=== PATIENT | male | born 1955 | race Caucasian/White ===

== ENCOUNTER 2016-12-05 18:10 | Inpatient (IN) | payer MEDICAID ==
[~2016-12-05] VITALS: Ht 177.8 cm; Wt 81.8 kg
[~2016-12-05 18:10] MED LIST: NOCURR
[2016-12-05] MEDS ORDERED: ANTIBIOTIC PO (18:29)
[2016-12-05] MEDS ORDERED: INSNOV SQ (18:30)
[2016-12-05 18:36] LABS: GLUCOSE,POINT OF CARE 159 MG/DL (70-110)
[2016-12-05 19:02] LABS: BASOPHILS % (AUTO) 0.5 % (0.0-2.0); EOSINOPHILS % (AUTO) 0.1 % (1.0-6.0); HEMATOCRIT 46.5 % (41-53); LYMPHOCYTES # (AUTO) 2.4 K/uL (1.0-4.8); LYMPHOCYTES % (AUTO) 21.9 % (22.0-44.0); MEAN CORPUSCULAR HEMOGLOBIN 32.7 pg (26.0-34.0); MEAN CORPUSCULAR HGB CONC 34.4 G/dL (31.0-37.0); MEAN CORPUSCULAR VOLUME 95 fL (80-100); MONOCYTES # (AUTO) 0.9 K/uL (0.1-1.0); MONOCYTES % (AUTO) 7.8 % (2.0-9.0); NEUTROPHILS # (AUTO) 7.6 K/uL (1.8-7.7); NEUTROPHILS % (AUTO) 69.7 % (40.0-70.0); PLATELET COUNT (AUTO) 272 K/uL (150-450); RED BLOOD CELL COUNT(AUTO) 4.89 MIL/uL (4.50-5.90); RED CELL DISTRIBUTION WIDTH 12.3 % (11.5-14.5); WHITE BLOOD COUNT (AUTO) 10.9 K/uL (4.5-11.0)
[2016-12-05 19:38] LABS: ANION GAP 10 mmol/L (8-16); CALCIUM, TOTAL 8.6 mg/dL (8.8-10.5); CARBON DIOXIDE 23 mmol/L (22-29); CHLORIDE 101 mmol/L (98-107); CREATININE 0.63 mg/dL (0.60-1.30); GLOMERULAR FILTR. RATE CALC > 60 mL/min (>60); POTASSIUM 3.8 mmol/L (3.5-5.1); SODIUM SERUM 134 mmol/L (136-145); UREA NITROGEN, BLOOD 10 mg/dL (7-18)
[2016-12-05 19:46] LABS: ALANINE AMINOTRANSFERASE 21 U/L (12-78); ALBUMIN 3.4 g/dL (3.4-5.0); ASPARTATE AMINOTRANSFERASE 11 U/L (15-37); BILIRUBIN,TOTAL 0.5 mg/dL (0.1-1.0); LACTIC ACID 1.6 mmol/L (0.4-2.0)
[2016-12-05] MEDS ORDERED: ONDANSETRON HCL 4 MG/2 ML VIAL IVP PRN (20:00)
[2016-12-05] MEDS ORDERED: ACETAMINOPHEN 325 MG TABLET PO PRN (20:00)
[2016-12-05] MEDS ORDERED: PIPERACILLIN/TAZO 3.375 GM/D5W 50 ML IV ONE (20:00)
[2016-12-05] MEDS ORDERED: KETOROLAC TROMETHAMINE 30 MG/ML VIAL IVP ONE (20:00)
[2016-12-05] MEDS ORDERED: SODIUM CHLORIDE 0.9% 1,000 ML IV ONE (20:00)
[2016-12-05] MEDS ORDERED: CEFTAROLINE 600 MG/D5W 250 ML IV ONE (20:00)
[2016-12-06] MEDS ORDERED: 0.9% SODIUM CHLORIDE 10 ML SYRINGE IVP PRN (03:30)
[2016-12-06] MEDS ORDERED: ONDANSETRON HCL 4 MG/2 ML VIAL IVP PRN (03:30)
[2016-12-06] MEDS ORDERED: *CLINICAL-CEFTAROLINE DOSING CLINICAL ONE (03:30)
[2016-12-06] MEDS ORDERED: DEXTROSE 50%-WATER 25 GM/50 ML SYRINGE IVP PRN (03:30)
[2016-12-06 06:46] LABS: GLUCOSE,POINT OF CARE 192 MG/DL (70-110)
[2016-12-06 07:41] LABS: GLUCOSE,POINT OF CARE 171 MG/DL (70-110)
[2016-12-06] MEDS: DOCUSATE SODIUM 100 MG CAPSULE PO SCH ×2 (08:51→20:52)
[2016-12-06] MEDS: PANTOPRAZOLE SODIUM 40 MG/VIAL IVP SCH (08:58)
[2016-12-06] MEDS: OxyCODONE HCL/ACETAMINOPHEN 5-325 MG TABLET PO PRN (08:59)
[2016-12-06 09:29] VITALS: BP 115/78
[2016-12-06] MEDS: INSULIN ASPART 100 UNITS/ML SQ PRN ×3 (11:31→21:33)
[2016-12-06 11:51] LABS: GLUCOSE,POINT OF CARE 230 MG/DL (70-110)
[2016-12-06 12:01] VITALS: BP 146/84
[2016-12-06] MEDS ORDERED: INFLUENZA VIRUS VACCINE QVS 2016-17 (3YR+)/PF 60 MCG/0.5 ML SYRINGE IM ONE (12:30)
[2016-12-06] MEDS ORDERED: PNEUMOCOCCAL VACCINE POLYVALENT 0.5 ML VIAL [PPSV23] IM ONE (12:30)
[2016-12-06 15:42] VITALS: BP 128/78
[2016-12-06 17:57] LABS: GLUCOSE COMMENT 1 Received Meds; GLUCOSE,POINT OF CARE 177 MG/DL (70-110)
[2016-12-06 19:32] VITALS: BP 140/75
[2016-12-06] MEDS ORDERED: SODIUM CHLORIDE 0.9% 250 ML IV ONE (20:34)
[2016-12-06] MEDS: CEFTAROLINE 600 MG/D5W 250 ML IV SCH (20:52)
[2016-12-06 21:50] LABS: GLUCOSE,POINT OF CARE 165 MG/DL (70-110)
[2016-12-06 23:13] VITALS: BP 114/75
[2016-12-07 04:21] VITALS: BP 124/79
[2016-12-07 05:32] LABS: GLUCOSE COMMENT 1 Received Meds; GLUCOSE,POINT OF CARE 192 MG/DL (70-110)
[2016-12-07] MEDS: INSULIN ASPART 100 UNITS/ML SQ PRN ×4 (05:47→20:26)
[2016-12-07] MEDS: OxyCODONE HCL/ACETAMINOPHEN 5-325 MG TABLET PO PRN (05:48)
[2016-12-07 06:10] LABS: BASOPHILS % (AUTO) 0.5 % (0.0-2.0); EOSINOPHILS % (AUTO) 2.3 % (1.0-6.0); HEMATOCRIT 43.6 % (41-53); MEAN CORPUSCULAR HEMOGLOBIN 32.8 pg (26.0-34.0); MEAN CORPUSCULAR HGB CONC 34.4 G/dL (31.0-37.0); MEAN CORPUSCULAR VOLUME 95 fL (80-100); MONOCYTES # (AUTO) 0.7 K/uL (0.1-1.0); MONOCYTES % (AUTO) 9.7 % (2.0-9.0); NEUTROPHILS # (AUTO) 4.7 K/uL (1.8-7.7); NEUTROPHILS % (AUTO) 61.5 % (40.0-70.0); PLATELET COUNT (AUTO) 236 K/uL (150-450); RED BLOOD CELL COUNT(AUTO) 4.58 MIL/uL (4.50-5.90); RED CELL DISTRIBUTION WIDTH 12.3 % (11.5-14.5); WHITE BLOOD COUNT (AUTO) 7.6 K/uL (4.5-11.0)
[2016-12-07 06:41] LABS: ANION GAP 9 mmol/L (8-16); CALCIUM, TOTAL 8.7 mg/dL (8.8-10.5); CARBON DIOXIDE 25 mmol/L (22-29); CHLORIDE 102 mmol/L (98-107); CREATININE 0.65 mg/dL (0.60-1.30); GLOMERULAR FILTR. RATE CALC > 60 mL/min (>60); POTASSIUM 4.2 mmol/L (3.5-5.1); SODIUM SERUM 136 mmol/L (136-145); UREA NITROGEN, BLOOD 8 mg/dL (7-18)
[2016-12-07 07:46] VITALS: BP 115/64
[2016-12-07] MEDS: PANTOPRAZOLE SODIUM 40 MG/VIAL IVP SCH (08:22)
[2016-12-07] MEDS: DOCUSATE SODIUM 100 MG CAPSULE PO SCH ×2 (08:22→20:29)
[2016-12-07] MEDS: CEFTAROLINE 600 MG/D5W 250 ML IV SCH ×2 (08:22→20:25)
[2016-12-07 11:32] LABS: GLUCOSE,POINT OF CARE 189 MG/DL (70-110)
[2016-12-07 11:42] VITALS: BP 134/66
[2016-12-07 15:34] VITALS: BP 129/70
[2016-12-07 16:56] LABS: GLUCOSE COMMENT 1 Received Meds; GLUCOSE,POINT OF CARE 218 MG/DL (70-110)
[2016-12-07 20:12] VITALS: BP 134/75
[2016-12-07 21:31] LABS: GLUCOSE COMMENT 1 Received Meds; GLUCOSE,POINT OF CARE 177 MG/DL (70-110)
[2016-12-07 23:15] VITALS: BP 130/78
[2016-12-08 03:45] VITALS: BP 124/67
[2016-12-08] MEDS: INSULIN ASPART 100 UNITS/ML SQ PRN ×4 (05:52→20:53)
[2016-12-08 06:21] LABS: GLUCOSE COMMENT 1 Received Meds; GLUCOSE,POINT OF CARE 159 MG/DL (70-110)
[2016-12-08 06:44] LABS: EOSINOPHILS % (AUTO) 2.5 % (1.0-6.0); HEMATOCRIT 44.8 % (41-53); HEMOGLOBIN 15.4 g/dL (13.5-17.5); LYMPHOCYTES # (AUTO) 1.8 K/uL (1.0-4.8); LYMPHOCYTES % (AUTO) 24.3 % (22.0-44.0); MEAN CORPUSCULAR HEMOGLOBIN 32.9 pg (26.0-34.0); MEAN CORPUSCULAR HGB CONC 34.5 G/dL (31.0-37.0); MEAN CORPUSCULAR VOLUME 95 fL (80-100); MONOCYTES # (AUTO) 0.8 K/uL (0.1-1.0); MONOCYTES % (AUTO) 10.9 % (2.0-9.0); NEUTROPHILS # (AUTO) 4.6 K/uL (1.8-7.7); NEUTROPHILS % (AUTO) 61.3 % (40.0-70.0); PLATELET COUNT (AUTO) 240 K/uL (150-450); RED CELL DISTRIBUTION WIDTH 12.3 % (11.5-14.5); WHITE BLOOD COUNT (AUTO) 7.6 K/uL (4.5-11.0)
[2016-12-08 07:13] LABS: ALANINE AMINOTRANSFERASE 17 U/L (12-78); ALBUMIN 3.1 g/dL (3.4-5.0); ANION GAP 5 mmol/L (8-16); ASPARTATE AMINOTRANSFERASE 11 U/L (15-37); BILIRUBIN,TOTAL 0.8 mg/dL (0.1-1.0); CALCIUM, TOTAL 8.6 mg/dL (8.8-10.5); CARBON DIOXIDE 26 mmol/L (22-29); CHLORIDE 101 mmol/L (98-107); GLOMERULAR FILTR. RATE CALC > 60 mL/min (>60); POTASSIUM 3.6 mmol/L (3.5-5.1); SODIUM SERUM 132 mmol/L (136-145); TOTAL PROTEIN, SERUM 6.5 g/dL (6.4-8.2); UREA NITROGEN, BLOOD 11 mg/dL (7-18)
[2016-12-08 08:00] VITALS: BP 115/69
[2016-12-08] MEDS: DOCUSATE SODIUM 100 MG CAPSULE PO SCH ×2 (08:30→20:52)
[2016-12-08] MEDS: OxyCODONE HCL/ACETAMINOPHEN 5-325 MG TABLET PO PRN ×2 (08:30→20:52)
[2016-12-08] MEDS: PANTOPRAZOLE SODIUM 40 MG/VIAL IVP SCH (08:30)
[2016-12-08] MEDS: CEFTAROLINE 600 MG/D5W 250 ML IV SCH ×2 (08:30→20:52)
[2016-12-08 12:26] VITALS: BP 114/62
[2016-12-08 12:31] LABS: GLUCOSE COMMENT 1 Received Meds; GLUCOSE,POINT OF CARE 246 MG/DL (70-110)
[2016-12-08 15:48] VITALS: BP 116/64
[2016-12-08 19:47] VITALS: BP 139/78
[2016-12-08 22:26] LABS: GLUCOSE,POINT OF CARE 174 MG/DL (70-110)
[2016-12-08 23:13] VITALS: BP 120/70
[2016-12-09] VITALS (8 sets, daily range): BP systolic 11–158; BP diastolic 62–91
[2016-12-09 04:12] LABS: GLUCOSE COMMENT 1 Received Meds; GLUCOSE,POINT OF CARE 151 MG/DL (70-110)
[2016-12-09 06:21] LABS: GLUCOSE,POINT OF CARE 181 MG/DL (70-110)
[2016-12-09] MEDS ORDERED: LIDOCAINE HCL/PF 1% 30 ML VIAL ONE (08:58)
[2016-12-09] MEDS ORDERED: IOHEXOL 300 MG/ML 150 ML VIAL ONE (08:59)
[2016-12-09] MEDS ORDERED: SODIUM BICARBONATE 50 MEQ/50 ML VIAL ONE (08:59)
[2016-12-09] MEDS: DOCUSATE SODIUM 100 MG CAPSULE PO SCH ×2 (09:00→20:39)
[2016-12-09] MEDS: CEFTAROLINE 600 MG/D5W 250 ML IV SCH ×2 (09:00→20:40)
[2016-12-09] MEDS: PANTOPRAZOLE SODIUM 40 MG/VIAL IVP SCH (09:00)
[2016-12-09] MEDS ORDERED: HEPARIN SODIUM 1000 UNITS/NS 500 ML ONE (09:18)
[2016-12-09] MEDS ORDERED: IOHEXOL 300 MG/ML 100 ML VIAL ONE (09:28)
[2016-12-09] MEDS ORDERED: MIDAZOLAM HCL 2 MG/2 ML VIAL ONE ×2 (09:29→11:50)
[2016-12-09] MEDS ORDERED: FentaNYL CITRATE-PF 100 MCG/2 ML VIAL ONE ×2 (09:29→11:50)
[2016-12-09] MEDS ORDERED: IOHEXOL 300 MG/ML 100 ML VIAL IARTER ONE (09:45)
[2016-12-09] MEDS ORDERED: SODIUM CHLORIDE 0.9% 500 ML IV ONE (09:45)
[2016-12-09] MEDS ORDERED: FentaNYL CITRATE-PF 100 MCG/2 ML VIAL IVP ONE ×3 (09:45→11:45)
[2016-12-09] MEDS ORDERED: LIDOCAINE 1% 30 ML/SOD BICARB 8.4% 4 ML SQ ONE (09:45)
[2016-12-09] MEDS ORDERED: MIDAZOLAM HCL 2 MG/2 ML VIAL IVP ONE ×3 (09:45→11:45)
[2016-12-09] MEDS ORDERED: IOHEXOL 300 MG/ML 50 ML VIAL ONE ×2 (10:04→11:20)
[2016-12-09] MEDS ORDERED: HEPARIN SODIUM,PORCINE 5,000 UNITS/ML VIAL IVP ONE ×2 (10:45→11:45)
[2016-12-09] MEDS ORDERED: IOHEXOL 300 MG/ML 50 ML VIAL IARTER ONE (11:45)
[2016-12-09 17:11] LABS: GLUCOSE COMMENT 1 Received Meds; GLUCOSE,POINT OF CARE 235 MG/DL (70-110)
[2016-12-09] MEDS: OxyCODONE HCL/ACETAMINOPHEN 5-325 MG TABLET PO PRN ×3 (17:16→23:57)
[2016-12-09] MEDS: INSULIN ASPART 100 UNITS/ML SQ PRN ×2 (17:17→20:40)
[2016-12-09 21:06] LABS: GLUCOSE,POINT OF CARE 131 MG/DL (70-110)
[2016-12-10 04:32] VITALS: BP 102/62
[2016-12-10] MEDS: INSULIN ASPART 100 UNITS/ML SQ PRN ×3 (06:05→17:29)
[2016-12-10] MEDS: OxyCODONE HCL/ACETAMINOPHEN 5-325 MG TABLET PO PRN ×4 (06:07→21:52)
[2016-12-10 06:31] LABS: GLUCOSE COMMENT 1 Received Meds; GLUCOSE,POINT OF CARE 139 MG/DL (70-110)
[2016-12-10 07:35] VITALS: BP 110/65
[2016-12-10] MEDS: DOCUSATE SODIUM 100 MG CAPSULE PO SCH ×2 (08:45→21:00)
[2016-12-10] MEDS: PANTOPRAZOLE SODIUM 40 MG/VIAL IVP SCH (08:46)
[2016-12-10] MEDS: CEFTAROLINE 600 MG/D5W 250 ML IV SCH ×2 (08:46→21:00)
[2016-12-10 11:49] VITALS: BP 121/72
[2016-12-10 12:40] LABS: GLUCOSE COMMENT 1 Received Meds; GLUCOSE,POINT OF CARE 206 MG/DL (70-110)
[2016-12-10 15:24] VITALS: BP 138/76
[2016-12-10 17:56] LABS: GLUCOSE COMMENT 1 Received Meds; GLUCOSE,POINT OF CARE 167 MG/DL (70-110)
[2016-12-10 19:31] VITALS: BP 112/64
[2016-12-10] MEDS ORDERED: SODIUM CHLORIDE 0.9% 250 ML IV ONE (22:18)
[2016-12-10 23:18] VITALS: BP 131/63
[2016-12-10 23:41] LABS: GLUCOSE COMMENT 1 Received Meds; GLUCOSE,POINT OF CARE 159 MG/DL (70-110)
[2016-12-11] VITALS (7 sets, daily range): BP systolic 111–157; BP diastolic 61–86
[2016-12-11 05:51] LABS: GLUCOSE COMMENT 1 Received Meds; GLUCOSE,POINT OF CARE 138 MG/DL (70-110)
[2016-12-11 06:41] LABS: BASOPHILS % (AUTO) 1.1 % (0.0-2.0); EOSINOPHILS % (AUTO) 3.6 % (1.0-6.0); HEMATOCRIT 46.4 % (41-53); HEMOGLOBIN 15.6 g/dL (13.5-17.5); LYMPHOCYTES # (AUTO) 2.2 K/uL (1.0-4.8); LYMPHOCYTES % (AUTO) 26.6 % (22.0-44.0); MEAN CORPUSCULAR HEMOGLOBIN 32.4 pg (26.0-34.0); MEAN CORPUSCULAR HGB CONC 33.6 G/dL (31.0-37.0); MEAN CORPUSCULAR VOLUME 97 fL (80-100); MONOCYTES % (AUTO) 11.7 % (2.0-9.0); NEUTROPHILS # (AUTO) 4.7 K/uL (1.8-7.7); PLATELET COUNT (AUTO) 236 K/uL (150-450); RED CELL DISTRIBUTION WIDTH 12.5 % (11.5-14.5); WHITE BLOOD COUNT (AUTO) 8.3 K/uL (4.5-11.0)
[2016-12-11] MEDS ORDERED: LIDOCAINE HCL/PF 1% 30 ML VIAL ONE (06:42)
[2016-12-11] MEDS ORDERED: BUPIVACAINE HCL/PF 0.5% 30 ML VIAL ONE (06:43)
[2016-12-11] MEDS ORDERED: SODIUM CHLORIDE 0.9% 1,000 ML IV ONE (06:43)
[2016-12-11 06:57] LABS: ANION GAP 6 mmol/L (8-16); CARBON DIOXIDE 30 mmol/L (22-29); CHLORIDE 100 mmol/L (98-107); CREATININE 0.77 mg/dL (0.60-1.30); GLOMERULAR FILTR. RATE CALC > 60 mL/min (>60); POTASSIUM 4.4 mmol/L (3.5-5.1); SODIUM SERUM 136 mmol/L (136-145); UREA NITROGEN, BLOOD 13 mg/dL (7-18)
[2016-12-11] MEDS ORDERED: SODIUM CHLORIDE 0.9% IRRIG BAG 1,000 ML IRRIG ONE (06:59)
[2016-12-11] MEDS ORDERED: SODIUM CL IRRIG SOLN BAG 0 ML IRRIG ONE (06:59)
[2016-12-11] MEDS ORDERED: SODIUM CHLORIDE 0.9% 10 ML ONE (07:35)
[2016-12-11] MEDS ORDERED: BACITRACIN 50,000 UNITS/VIAL ONE (07:35)
[2016-12-11] MEDS ORDERED: HYDROmorphone 2 MG/ML SYRINGE IVP PRN (08:00)
[2016-12-11] MEDS ORDERED: OXYGEN THERAPY IH SCH (08:00)
[2016-12-11] MEDS ORDERED: MEPERIDINE-PF 25 MG/ML SYRINGE IVP PRN (08:00)
[2016-12-11] MEDS ORDERED: FentaNYL CITRATE-PF 100 MCG/2 ML VIAL IVP PRN (08:00)
[2016-12-11] MEDS: PANTOPRAZOLE SODIUM 40 MG/VIAL IVP SCH (09:18)
[2016-12-11] MEDS: CEFTAROLINE 600 MG/D5W 250 ML IV SCH ×2 (09:18→21:07)
[2016-12-11] MEDS: DOCUSATE SODIUM 100 MG CAPSULE PO SCH ×2 (09:19→21:03)
[2016-12-11] MEDS: MULTIVITAMINS WITH MINERALS, THERAPEUTIC TABLET PO SCH (09:19)
[2016-12-11] MEDS: OxyCODONE HCL/ACETAMINOPHEN 5-325 MG TABLET PO PRN ×2 (11:01→18:50)
[2016-12-11] MEDS: INSULIN ASPART 100 UNITS/ML SQ PRN ×2 (11:31→17:15)
[2016-12-11 11:36] LABS: GLUCOSE,POINT OF CARE 239 MG/DL (70-110)
[2016-12-11] MEDS ORDERED: MIDAZOLAM HCL 2 MG/2 ML VIAL IVP ONE (12:00)
[2016-12-11] MEDS ORDERED: KETAMINE HCL 50 MG/ML 10 ML VIAL IVP ONE (12:00)
[2016-12-11] MEDS ORDERED: PROPOFOL 1% 20 ML VIAL IVP ONE (12:00)
[2016-12-11] MEDS ORDERED: FentaNYL CITRATE-PF 100 MCG/2 ML VIAL IVP ONE (12:00)
[2016-12-11 17:31] LABS: GLUCOSE COMMENT 1 Received Meds; GLUCOSE,POINT OF CARE 250 MG/DL (70-110)
[2016-12-11 23:20] LABS: GLUCOSE,POINT OF CARE 122 MG/DL (70-110)
[2016-12-12 04:27] VITALS: BP 110/56
[2016-12-12] MEDS: INSULIN ASPART 100 UNITS/ML SQ PRN ×4 (06:24→20:27)
[2016-12-12 07:22] LABS: ANION GAP 6 mmol/L (8-16); CALCIUM, TOTAL 8.9 mg/dL (8.8-10.5); CARBON DIOXIDE 29 mmol/L (22-29); CHLORIDE 102 mmol/L (98-107); CREATININE 0.72 mg/dL (0.60-1.30); GLOMERULAR FILTR. RATE CALC > 60 mL/min (>60); POTASSIUM 4.6 mmol/L (3.5-5.1); SODIUM SERUM 137 mmol/L (136-145); UREA NITROGEN, BLOOD 13 mg/dL (7-18)
[2016-12-12 07:30] LABS: GLUCOSE,POINT OF CARE 156 MG/DL (70-110)
[2016-12-12 08:05] VITALS: BP 105/60
[2016-12-12] MEDS: DOCUSATE SODIUM 100 MG CAPSULE PO SCH ×2 (08:09→20:24)
[2016-12-12] MEDS: MULTIVITAMINS WITH MINERALS, THERAPEUTIC TABLET PO SCH (08:09)
[2016-12-12] MEDS: PANTOPRAZOLE SODIUM 40 MG/VIAL IVP SCH (08:10)
[2016-12-12] MEDS: CEFTAROLINE 600 MG/D5W 250 ML IV SCH ×2 (08:11→20:26)
[2016-12-12 11:23] VITALS: BP 122/65
[2016-12-12 11:41] LABS: GLUCOSE,POINT OF CARE 204 MG/DL (70-110)
[2016-12-12 15:25] VITALS: BP 130/77
[2016-12-12 17:11] LABS: GLUCOSE COMMENT 1 Received Meds; GLUCOSE,POINT OF CARE 177 MG/DL (70-110)
[2016-12-12] MEDS: OxyCODONE HCL/ACETAMINOPHEN 5-325 MG TABLET PO PRN (17:12)
[2016-12-12 19:10] VITALS: BP 112/70
[2016-12-12 22:46] LABS: GLUCOSE,POINT OF CARE 221 MG/DL (70-110)
[2016-12-12 23:48] VITALS: BP 102/58
[2016-12-13 04:25] VITALS: BP 109/62
[2016-12-13] MEDS: INSULIN ASPART 100 UNITS/ML SQ PRN ×2 (06:09→11:27)
[2016-12-13 06:48] LABS: ANION GAP 7 mmol/L (8-16); CALCIUM, TOTAL 8.6 mg/dL (8.8-10.5); CARBON DIOXIDE 26 mmol/L (22-29); CHLORIDE 101 mmol/L (98-107); CREATININE 0.64 mg/dL (0.60-1.30); GLOMERULAR FILTR. RATE CALC > 60 mL/min (>60); SODIUM SERUM 134 mmol/L (136-145); UREA NITROGEN, BLOOD 12 mg/dL (7-18)
[2016-12-13 06:51] LABS: GLUCOSE,POINT OF CARE 177 MG/DL (70-110)
[2016-12-13 07:17] VITALS: BP 118/70
[2016-12-13] MEDS: MULTIVITAMINS WITH MINERALS, THERAPEUTIC TABLET PO SCH (08:51)
[2016-12-13] MEDS: CEFTAROLINE 600 MG/D5W 250 ML IV SCH (08:51)
[2016-12-13] MEDS: DOCUSATE SODIUM 100 MG CAPSULE PO SCH (08:51)
[2016-12-13] MEDS: OxyCODONE HCL/ACETAMINOPHEN 5-325 MG TABLET PO PRN (08:51)
[2016-12-13] MEDS: PANTOPRAZOLE SODIUM 40 MG/VIAL IVP SCH (08:51)
[2016-12-13 11:33] VITALS: BP 136/76
[2016-12-13 11:46] LABS: GLUCOSE COMMENT 1 Received Meds; GLUCOSE,POINT OF CARE 212 MG/DL (70-110)
[2016-12-13] MEDS ORDERED: AMINO ACIDS/PROTEIN HYDROLYS 30 ML TUBE PO SCH (12:00)
[2016-12-13] MEDS ORDERED: INSLAN SQ (14:40)
== END 2016-12-13 17:20 | disposition home or self-care (01) | DRG 173 ==
LOC: EMS 18:11 → 6N 12-06 05:18
PROVIDERS: ADMIT Internal Medicine; ATTEND Internal Medicine
PROC: 3E0234Z Introduction of Serum, Toxoid and Vaccine into Muscle, Percutaneous Approach (ICD-10-PCS; principal; 2016-12-07)
PROC: 04703ZZ Dilation of Abdominal Aorta, Percutaneous Approach (ICD-10-PCS; 2016-12-09)
PROC: B41G1ZZ Fluoroscopy of Left Lower Extremity Arteries using Low Osmolar Contrast (ICD-10-PCS; 2016-12-09)
DX: E11.52 Type 2 diabetes mellitus with diabetic peripheral angiopathy with gangrene (principal); L03.116 Cellulitis of left lower limb; I10 Essential (primary) hypertension; E78.5 Hyperlipidemia, unspecified; B96.20 Unspecified Escherichia coli [E. coli] as the cause of diseases classified elsewhere; F17.210 Nicotine dependence, cigarettes, uncomplicated; Z79.4 Long term (current) use of insulin
CPT/HCPCS: 36200; 75630; 75716; 75962; 82962; 83605; 87070; 87205; 88305; 88311; 90471; 93925; 96365; 96368; 99285; C9113; J0712; J1644; J1885; J2250; J2543; J2704; J3010; J3490; J7030; J7050; Q9967

== ENCOUNTER 2016-12-13 20:47 | Emergency (ER) | payer MEDICAID ==
[~2016-12-13] VITALS: Ht 170.2 cm; Wt 85.0 kg
[~2016-12-13 20:47] MED LIST changes: +ANTIBIOTIC PO; +INSLAN SQ; +INSNOV SQ; -NOCURR
[2016-12-13 21:11] LABS: GLUCOSE,POINT OF CARE 232 MG/DL (70-110)
[2016-12-13] MEDS ORDERED: MORPHINE SULFATE 4 MG/ML SYRINGE IVP ONE (22:00)
[2016-12-13] MEDS ORDERED: ONDANSETRON HCL 4 MG/2 ML VIAL IVP ONE (22:00)
[2016-12-13 22:21] LABS: BASOPHILS # (AUTO) 0.05 K/uL (0.00-0.20); BASOPHILS % (AUTO) 0.4 % (0.0-2.0); EOSINOPHILS % (AUTO) 0.02 % (1.0-6.0); HEMATOCRIT 43.7 % (41-53); HEMOGLOBIN 14.9 g/dL (13.5-17.5); LYMPHOCYTES % (AUTO) 17.7 % (22.0-44.0); MEAN CORPUSCULAR HEMOGLOBIN 32.7 pg (26.0-34.0); MEAN CORPUSCULAR HGB CONC 34.1 G/dL (31.0-37.0); MEAN CORPUSCULAR VOLUME 96 fL (80-100); MONOCYTES # (AUTO) 0.8 K/uL (0.1-1.0); MONOCYTES % (AUTO) 6.9 % (2.0-9.0); NEUTROPHILS # (AUTO) 8.5 K/uL (1.8-7.7); PLATELET COUNT (AUTO) 229 K/uL (150-450); RED BLOOD CELL COUNT(AUTO) 4.55 MIL/uL (4.50-5.90); RED CELL DISTRIBUTION WIDTH 12.8 % (11.5-14.5); WHITE BLOOD COUNT (AUTO) 11.4 K/uL (4.5-11.0)
[2016-12-13 23:30] VITALS: BP 112/65
== END 2016-12-13 23:30 | disposition home or self-care (01) ==
LOC: EMS 20:49
DX: G89.18 Other acute postprocedural pain (principal); M79.672 Pain in left foot; E11.9 Type 2 diabetes mellitus without complications; Z79.4 Long term (current) use of insulin
CPT/HCPCS: 36415; 82962; 85025; 96374; 96375; 99284; J2270; J2405

== ENCOUNTER 2019-03-10 17:41 | Emergency (ER) | payer SELFPAY ==
[~2019-03-10] VITALS: Ht 170.2 cm; Wt 77.3 kg
[~2019-03-10 17:41] MED LIST changes: -ANTIBIOTIC PO
[2019-03-10 17:55] VITALS: BP 137/82
[2019-03-10 18:00] LABS: GLUCOSE,POINT OF CARE 147 MG/DL (70-110)
== END 2019-03-10 18:20 | disposition home or self-care (01) ==
LOC: EMS 17:42
DX: S31.109A Unspecified open wound of abdominal wall, unspecified quadrant without penetration into peritoneal cavity, initial encounter (principal); E11.9 Type 2 diabetes mellitus without complications; Z79.4 Long term (current) use of insulin; X58.XXXA Exposure to other specified factors, initial encounter; Y93.89 Activity, other specified; Y92.89 Other specified places as the place of occurrence of the external cause; Y99.8 Other external cause status